=== PATIENT | female | born 1975 | race Caucasian/White ===

== ENCOUNTER → 2020-03-27 13:33 | Outpatient (CLI) | payer OTHER, SELFPAY ==
[2020-03-27 15:18] LABS: Hematocrit 38.1 % (37-47); Mean Corp Hgb Conc 31.5 g/dL (32-36); Mean Corpuscular Hgb 27.7 pg (27.0-32.0); Mean Platelet Vol. 10.7 fl (6.2-12.0); Platelet Count 422 K/mm3 (150-450); RBC Distribution Width CV 14.3 % (11.6-14.6); RBC Distribution Width SD 45.9 fl (35.1-43.9); Red Blood Count 4.33 M/mm3 (4.2-5.4)
[2020-03-27 16:12] LABS: Anion Gap 5 (5-15); BUN 13 mg/dL (7-18); BUN/Creat Ratio 16.6 RATIO (10-20); Calcium,Total 8.8 mg/dL (8.5-10.1); Chloride 108 mmol/L (98-107); Creatinine, Serum 0.78 mg/dL (0.55-1.02); EST Glomerular Filtration Rate 85 mL/min (>60); Est Glom Filt Rate - Afr Amer 103 mL/min (>60); Glucose 90 mg/dL (74-106); Iron 35 ug/dL (50-170); Potassium 4.2 mmol/L (3.5-5.1); Sodium Level 139 mmol/L (136-145); Thyroid Stim Hormone (TSH) 1.12 uIU/mL (0.358-3.74)
== END ==
PROVIDERS: PCP Family Medicine; Referring Provider Family Medicine; Visit Provider Family Medicine
DX: R55 Syncope and collapse (principal); I49.9 Cardiac arrhythmia, unspecified
CPT/HCPCS: 36415; 80048; 83540; 83735; 84443; 85027

== ENCOUNTER → 2020-04-11 12:56 | Outpatient (CLI) | payer OTHER, SELFPAY ==
--- NOTE | 2020-04-11 12:58 | ECHOD_ITS ---
Reason For Study: SYNCOPE Procedure This was a 2D Doppler, Color Flow transthoracic echocardiogram. Exam performed in department. Left Ventricle Normal LV size. The estimated ejection fraction is 60 %. No evidence for diastolic dysfunction. No regional wall motion abnormalities noted. Right Ventricle Normal RV size. Normal systolic function. Atria Normal left atrium. Normal right atrium. No doppler evidence for ASD. Mitral Valve There is no mitral valve stenosis. No mitral valve insufficiency. Tricuspid Valve There is no tricuspid stenosis. No tricuspid valve insufficiency. Unable to estimate RV systolic pressure due to inadequate jet, pulmonary artery pressure probably normal. Aortic Valve There is no aortic stenosis. No aortic valve insufficiency. Pulmonic Valve There is no pulmonic valvular stenosis. No pulmonic valve insufficiency. Great Vessels Normal aortic root. Pericardium/Pleural No pericardial effusion. MMode/2D Measurements & Calculations LVIDd: 4.9 cm IVSd: 0.94 cm Ao root diam: 2.7 cm LVIDs: 3.3 cm LVPWd: 0.93 cm RVDd: 3.7 cm FS: 32.1 % LAV(MOD-bp): 62.6 ml LA A4 area: 21.1 cm2 LA dimension(2D): 3.8 cm LAV(MOD-bp) Indexed: 30.3 ml/m2 LAV(MOD-sp2): 58.5 ml LAV(MOD-sp4): 67.5 ml RA A4 area: 17.5 cm2 Time Measurements MV dec time: 0.15 sec Doppler Measurements & Calculations MV E max aaron: 49.7 cm/sec Lat Peak E' Aaron: 13.8 cm/sec Med Peak E' Aaron: 9.1 cm/sec MV A max aaron: 55.2 cm/sec E/E' lat: 3.6 E/E' med: 5.4 MV E/A: 0.90 Ao V2 max: 140.6 cm/sec LV V1 max: 112.6 cm/sec PA V2 max: 102.2 cm/sec Ao max P.9 mmHg LV V1 max P.1 mmHg TR max aaron: 241.6 cm/sec TR max P.3 mmHg Interpretation Summary The estimated ejection fraction is 60 %. No evidence for diastolic dysfunction. Ordering Physician: Ridge Rodriguez Referring Physician: Ridge Rodriguez Performed By: Laura Byrd RDCS, RVT
== END ==
PROVIDERS: PCP Family Medicine; Referring Provider Family Medicine; Visit Provider Family Medicine
DX: R55 Syncope and collapse (principal)
CPT/HCPCS: 93306